=== PATIENT | female | born 1975 | race Caucasian/White ===

== ENCOUNTER 2021-06-29 19:09 | Inpatient (IN) | payer OTHER ==
[~2021-06-29] VITALS: Ht 162.6 cm; Wt 58.5 kg
--- NOTE | 2021-06-29 19:10 | NUR ---
PT BIB C/O RLQ PAIN AND VOMITING STARTED 12 NOON TODAY. PT IS AAOX4, NOT IN RESPIRATORY DISTRESS, HOOKED TO BRASS SORTER, KEPT RESTED AND COMFORTABLE. WILL CONTINUE TO MONITOR.
--- NOTE | 2021-06-29 19:26 | NUR ---
AT BEDSIDE FOR EVAL.
[2021-06-29] MEDS ORDERED: IV NS 0.9% 1,000 ML BAG IV ONE ×3 (19:30→22:00)
[2021-06-29] MEDS ORDERED: MORPHINE SULFATE INJ 2 MG/ML DISP.SYRIN IV ONE (19:30)
[2021-06-29] MEDS ORDERED: ONDANSETRON HCL/PF 4 MG/2 ML VIAL IVP ONE (19:30)
[2021-06-29] MEDS ORDERED: ONDANSETRON HCL/PF 4 MG/2 ML VIAL ONE (19:34)
[2021-06-29] MEDS ORDERED: MORPHINE SULFATE INJ 4 MG/ML DISP.SYRIN ONE (19:35)
--- NOTE | 2021-06-29 19:49 | NUR ---
URINE AND BLOOD SAMPLE SENT TO LAB. PT REFUSED MORPHINE AND ZOFRAN AT THIS TIME. WILL HOLD ON TO IT FOR NOW
[2021-06-29 20:06] LABS: BILIRUBIN,URINE NEGATIVE (NEGATIVE); COLOR,URINE YELLOW (YELLOW); LEUKOCYTE ESTERASE ,URINE NEGATIVE (NEGATIVE); NITRITE, URINE NEGATIVE (NEGATIVE); PROTEIN,URINE NEGATIVE (NEGATIVE); UGLUCOSE NEGATIVE (NEGATIVE); UROBILINOGEN,URINE 0.2 EU/dL (0.2)
[2021-06-29 20:16] LABS: CALCIUM, SERUM 9.1 mg/dL (8.5-10.1); CREATININE 0.9 mg/dL (0.6-1.3); POTASSIUM 3.8 mmol/L (3.5-5.1)
[2021-06-29 20:18] LABS: BASOPHILS % (AUTO) 0.1 % (0.0-2.0); HEMATOCRIT 38 % (33-45); HEMOGLOBIN 12.5 g/dL (11.5-14.8); LYMPHOCYTES # (AUTO) 0.6 K/uL (0.8-4.8); MEAN CORPUSCULAR HGB CONC 33 g/dl (31.0-36.0); MEAN CORPUSCULAR VOLUME 90 fL (82-100); MONOCYTES % (AUTO) 5.4 % (2.0-12.0); NEUTROPHILS # (AUTO) 17.5 K/uL (1.8-8.9); NEUTROPHILS % (AUTO) 91.5 % (43.0-81.0); PLATELET COUNT (AUTO) 216 K/uL (150-450); RED BLOOD CELL COUNT(AUTO) 4.25 MIL/uL (4.0-5.2); WHITE BLOOD COUNT (AUTO) 19.2 K/uL (4.3-11.0)
[2021-06-29 20:24] LABS: BILIRUBIN,DIRECT 0.2 mg/dL (0.0-0.2); BILIRUBIN,TOTAL 0.6 mg/dL (0.2-1.0); TOTAL PROTEIN, SERUM 8.5 g/dL (6.4-8.2)
[2021-06-29] MEDS ORDERED: LEVOFLOXACIN 750 MG /D5W 150ML 150 ML IV ONE ×2 (21:30→22:42)
[2021-06-29] MEDS ORDERED: METRONIDAZOLE 500MG/ NS 100ML 100 ML IV ONE ×2 (21:30→23:46)
--- NOTE | 2021-06-29 21:33 | NUR ---
DR MONDRAGON ON THE PHONE WITH DR KLINE, GEN SURGEON
[2021-06-29] MEDS ORDERED: IOHEXOL-300 100 ML VIAL IV ONE (21:40)
[2021-06-29] MEDS ORDERED: IV NS 0.9% 250 ML IV ONE (21:41)
[2021-06-29] MEDS ORDERED: diphenhydrAMINE HCL 50 MG/ML VIAL ONE (21:50)
--- NOTE | 2021-06-29 21:54 | NUR ---
CALLED [facility]OR[facility] FOR ADMISSION
[2021-06-29] MEDS ORDERED: diphenhydrAMINE HCL 50 MG/ML VIAL IV ONE (22:00)
--- NOTE | 2021-06-29 22:26 | NUR ---
PATIENT TAKEN TO CT
[2021-06-29] MEDS ORDERED: METRONIDAZOLE 500MG/ NS 100ML 0 ML IV ONE (22:42)
--- NOTE | 2021-06-29 23:24 | NUR ---
DR ROMAN ON THE PHONE W/ DR KLINE
--- NOTE | 2021-06-29 23:28 | NUR ---
CALLED [facility] FOR CT READ
--- NOTE | 2021-06-29 23:50 | NUR ---
ROOM 315-1
--- NOTE | 2021-06-30 00:35 | NUR ---
paged epic, report given to ARIANNE Colon
[2021-06-30] MEDS ORDERED: ACETAMINOPHEN 650 MG/SUPP.RECT RC PRN (01:00)
[2021-06-30] MEDS ORDERED: ONDANSETRON HCL/PF 4 MG/2 ML VIAL IVP PRN ×2 (01:00→16:30)
[2021-06-30] MEDS ORDERED: MORPHINE SULFATE INJ 2 MG/ML DISP.SYRIN IV PRN (01:00)
--- NOTE | 2021-06-30 01:08 | NUR ---
TRANSFERRED TO 3RD FLOOR IN STABLE CONDITION
--- NOTE | 2021-06-30 01:15 | NUR ---
FUN HOUSE OPERATOR NOTES PATIENT BROUGHT UP AT THIS TIME VIA STRETCHER. A/OX4, AMBULATORY WITH STEADY GAITS. SKIN IS INTACT. NO S/S OF APPARENT DISTRESS ON ROOM AIR. PAIN TOLERABLE PER PATIENT AND NOT NEEDING MEDICATION AT THE MOMENT. IV FLAGY STARTED IN THE ER STILL RUNNING AT THIS TIME. ID BAND REPLACED, BELONGINGS CHECKED. V/S FOLLOWS: BP-139/73, HR-102, RR-18, T-98.7, 99% SATURATION ON ROOM AIR. WT-129.2 LBS. WILL CONTINUE WITH THE ADMISSION PROCESS AND FOLLOW THROUGH DOCTOR'S ORDERS.
--- NOTE | 2021-06-30 01:20 | NUR ---
RN NOTE: PATIENT WISHES TO BE FULL CODE AT THIS TIME. UP TO DATE WITH FLU AND COVID VACCINE. DENIES SMOKING AND DRINKS WINE ONLY SOMETIMES. PATIENT REPORTS BEING CONSTIPATED. LAST MENSTRUAL CYCLE WAS JUST THIS JUNE. STARTED ON IV LR @150ML/HR. NEEDS ATTENDED AT THIS TIME. WILL CONTINUE TO MONITOR.
[2021-06-30 01:45] VITALS: BP 139/73
[2021-06-30] MEDS: IV LR 1000 ML 1,000 ML IV PRN ×2 (01:54→11:25)
[2021-06-30] MEDS ORDERED: METRONIDAZOLE 500MG/ NS 100ML 100 ML IV ONE (04:44)
[2021-06-30] MEDS: METRONIDAZOLE 500MG/ NS 100ML 500 MG in PREMIX 1 EA IV SCH ×3 (04:55→20:28)
--- NOTE | 2021-06-30 07:29 | NUR ---
REPORT GIVEN TO HARVINDER FOR CONTINUITY OF CARE.
--- NOTE | 2021-06-30 07:39 | NUR ---
RN OPENING NOTES Patient seen comfortably lying in bed, no apparent distress noted, respirations even and unlabored, no SOB, denies any pain or discomfort at this time, no grimacing. Call light left within reach, safety precautions in place, brakes locked, side rails up X 2, will monitor closely for any changes.
[2021-06-30] MEDS ORDERED: MAGN200T9 PO (08:13)
[2021-06-30] MEDS ORDERED: LEVO100T PO (08:13)
[2021-06-30] MEDS ORDERED: DIPH25CA51 PO (08:13)
[2021-06-30] MEDS ORDERED: LACT1CAP71 PO (08:13)
[2021-06-30] MEDS ORDERED: CHOL100062 PO (08:13)
[2021-06-30] MEDS ORDERED: GUAI120013 PO (08:13)
[2021-06-30] MEDS ORDERED: AVENOVA EACHEYE (08:13)
[2021-06-30 08:28] VITALS: BP 135/72
[2021-06-30 10:04] LABS: BASOPHILS % (AUTO) 0.1 % (0.0-2.0); EOSINOPHILS % (AUTO) 0.2 % (0.0-6.0); HEMATOCRIT 35 % (33-45); HEMOGLOBIN 11.4 g/dL (11.5-14.8); LYMPHOCYTES # (AUTO) 1.7 K/uL (0.8-4.8); LYMPHOCYTES % (AUTO) 13.9 % (20.0-44.0); MEAN CORPUSCULAR HGB CONC 33 g/dl (31.0-36.0); MEAN CORPUSCULAR VOLUME 90 fL (82-100); NEUTROPHILS # (AUTO) 9.2 K/uL (1.8-8.9); NEUTROPHILS % (AUTO) 77.8 % (43.0-81.0); PLATELET COUNT (AUTO) 206 K/uL (150-450); RED BLOOD CELL COUNT(AUTO) 3.89 MIL/uL (4.0-5.2); WHITE BLOOD COUNT (AUTO) 11.9 K/uL (4.3-11.0)
[2021-06-30 10:21] LABS: CALCIUM, SERUM 8.3 mg/dL (8.5-10.1); CREATININE 0.9 mg/dL (0.6-1.3); POTASSIUM 3.4 mmol/L (3.5-5.1)
--- NOTE | 2021-06-30 13:30 | NUR ---
Patient has an order for laparoscopic appendectomy possible exploratory laparotomy, consent for the procedure obtained from patient, verbalized understanding of the procedure, reminded patient that she needs to remain nothing by mouth diet, verbalized understanding and gratitude. Consents signed by patient and are filed in patients chart.
[2021-06-30] MEDS ORDERED: BUPIVACAINE MPF W/EPI 0.25% 30 ML VIAL ONE ×2 (13:35→13:44)
[2021-06-30] MEDS ORDERED: ANESTHESIA TRAY IN PYXIS 1 EA TRAY MC ONE (13:35)
[2021-06-30] MEDS ORDERED: BUPIVACAINE 0.25% 75 MG/30 ML VIAL ONE (13:36)
[2021-06-30] MEDS ORDERED: LIDOCAINE 1% INJ 50 ML MDV IJ ONE (13:44)
[2021-06-30] MEDS ORDERED: BACITRACIN ZINC OINT PACKET 1 EA PACKET TP ONE (13:44)
--- NOTE | 2021-06-30 13:50 | NUR ---
Patient left for surgery around 1350pm, remained NPO , denies any abdominal pain at this time, no apparent distress notes, no s/s of hypo/hyperglycemia, no change in level of consciousness, no tremors, denies any pain or discomfort, consents and checklist present in patients chart, [facility] PACU staff made aware.
[2021-06-30] MEDS ORDERED: HYDROMORPHONE INJ 2 MG/ML DISP.SYRIN ONE (14:00)
[2021-06-30] MEDS ORDERED: ROCURONIUM BROMIDE 50 MG/5 ML ONE (14:01)
[2021-06-30] MEDS ORDERED: MIDAZOLAM HCL 2 MG/2ML VIAL ONE (14:01)
[2021-06-30] MEDS ORDERED: CELLULOSE,OXIDIZED 1 PKT EACH MC ONE (15:00)
--- NOTE | 2021-06-30 16:08 | NUR ---
PATIENT CAME BACK FROM SURGERY AROUND 1608NN, STABLE CONDITION, NO APPARENT DISTRESS NOTED, DENIES ANY PAIN OR DISCOMFORT, NO SOB, AFEBRILE, NO RESPIRATORY DISTRESS. PATIENT CAME BACK WITH NEW ORDERS FROM DR. KLINE, PACU NURSE FAXED IT TO PHARMACY, ALSO PER MD, OKAY TO START PATIENT ON CLEAR LIQUIDS. Patient S/P appendectomy and right ovary cystectomy today, 3 laparoscopic sites seen, no dressings needed per MD, no swelling, no discoloration, no bleeding noted, no s/s of infection, no unusual drainage seen, patient remained afebrile, feels little abdominal soreness preferred not to take her as needed pain medications at this time, will monitor closely for any changes, call light left within reach.
[2021-06-30] MEDS ORDERED: IV LR 1000 ML 1,000 ML IV PRN (16:30)
[2021-06-30 16:41] VITALS: BP 117/62
[2021-06-30] MEDS: POTASSIUM CL. PREMIX PERIPHER. 50 ML IV SCH ×2 (16:53→19:06)
[2021-06-30] MEDS: GABAPENTIN 300 MG CAPSULE PO SCH (16:53)
--- NOTE | 2021-06-30 18:50 | NUR ---
RN CLOSING NOTES Patient lying in bed, no SOB, respirations even and unlabored, no apparent distress noted, all medications given per MD order, tolerating well. S/P appendectomy and right ovary cystectomy today, 3 laparoscopic sites seen, no bleeding noted, no s/s of infection, no swelling, no discoloration, no unusual drainage seen, patient remained afebrile, feels little abdominal soreness preferred not to take her as needed pain medications. Routine medications given per MD order, tolerating well. Anti emetic given as needed, noted with help. Kept clean and dry, all needs attended, aspiration precautions rendered, call light left within reach, safety precautions in place, brakes locked, side rails up X 2, will endorse to next shift for continuity of care.
[2021-06-30] MEDS ORDERED: ACETAMINOPHEN 325 MG TABLET PO SCH (19:00)
[2021-06-30] MEDS ORDERED: POTASSIUM CL. PREMIX PERIPHER. 50 ML ONE (19:04)
--- NOTE | 2021-06-30 19:30 | NUR ---
MS RN OPENING RECEIVED PATIENT IN BED. A/OX4, AT BEDSIDE AT THIS TIME. NO S/S OF APPARENT DISTRESS ON ROOM AIR. DENIES PAIN AT THIS TIME. IV LR RUNNING AT 150ML/HR THIS TIME. SAFETY IN PLACE. NEEDS ATTENDED AT THIS TIME. WILL CONTINUE WITH CARE PLAN.
[2021-06-30 20:00] VITALS: BP 109/58
[2021-07-01] MEDS ORDERED: LEVOFLOXACIN 750 MG /D5W 150ML 750 MG in PREMIX 1 EA IV SCH
[2021-07-01] MEDS: METRONIDAZOLE 500MG/ NS 100ML 500 MG in PREMIX 1 EA IV SCH ×2 (04:26→13:45)
--- NOTE | 2021-07-01 07:41 | NUR ---
RN OPENING NOTES Patient seen comfortably lying in bed, no SOB, no apparent distress noted, breathing even and unlabored, no grimacing. Call light left within reach, safety precautions in place, brakes locked, side rails up X 2, will monitor closely for any changes.
--- NOTE | 2021-07-01 07:41 | NUR ---
REPORT GIVEN TO KATY FOR CONTINUITY OF CARE.
[2021-07-01 07:48] LABS: BASOPHILS % (AUTO) 0.1 % (0.0-2.0); HEMATOCRIT 32 % (33-45); HEMOGLOBIN 10.6 g/dL (11.5-14.8); LYMPHOCYTES # (AUTO) 0.9 K/uL (0.8-4.8); LYMPHOCYTES % (AUTO) 11.4 % (20.0-44.0); MEAN CORPUSCULAR HGB CONC 34 g/dl (31.0-36.0); MEAN CORPUSCULAR VOLUME 90 fL (82-100); MONOCYTES # (AUTO) 0.8 K/uL (0.1-1.30); MONOCYTES % (AUTO) 10.6 % (2.0-12.0); NEUTROPHILS # (AUTO) 6.2 K/uL (1.8-8.9); NEUTROPHILS % (AUTO) 77.9 % (43.0-81.0); PLATELET COUNT (AUTO) 180 K/uL (150-450); RED BLOOD CELL COUNT(AUTO) 3.49 MIL/uL (4.0-5.2)
[2021-07-01 08:00] LABS: ALBUMIN 2.9 g/dL (3.4-5.0); BILIRUBIN,TOTAL 0.4 mg/dL (0.2-1.0); CALCIUM, SERUM 8.4 mg/dL (8.5-10.1); CREATININE 0.8 mg/dL (0.6-1.3); MAGNESIUM 1.7 mg/dL (1.8-2.4); PHOSPHORUS 2.8 mg/dL (2.5-4.9); POTASSIUM 3.7 mmol/L (3.5-5.1); TOTAL PROTEIN, SERUM 6.8 g/dL (6.4-8.2)
[2021-07-01 08:35] VITALS: BP 129/71
[2021-07-01] MEDS: GABAPENTIN 300 MG CAPSULE PO SCH ×2 (09:07→12:25)
[2021-07-01] MEDS: Magnesium 1GM/D5W 100ML PREMIX 100 ML IV SCH ×2 (12:25→13:45)
--- NOTE | 2021-07-01 15:25 | NUR ---
Patient to be discharged home today, no apparent distress noted, no shortness of breath, respirations even and unlabored, denies any pain or discomfort, abdominal bowel sounds present in all quadrants, able to tolerate soft diet during lunch, no nausea, no vomiting, no grimacing when abdomen palpated. Patient made aware of the situation, she signed all discharge paper works, all belongings taken, inventory list signed by patient. Health teaching provided, verbalized understanding and gratitude. Reminded resident to schedule a follow up with Dr. Riley (surgeon) in 1 week, office address and phone number handed to patient, verbalized understanding and gratitude. Skin assessment done prior to discharge, skin intact, warm to touch, no pallor or cyanosis noted. Patient has 3 closed surgical holes in her abdomen, preferred not to have photos taken, explained risks, benefits, and hospital protocol thrice, still refused, respected patient's wishes, site noted with no s/s of infection, no unusual drainage, no unusual odor, no bleeding at this time, reminded patient to avoid heavy lifting, observed for any s/s infection, verbalized understanding and gratitude. Peripheral IV line at right antecubital removed prior to discharge, complete and intact, no excessive bleeding noted, site covered with dry dressing. Name wristband removed prior to discharge, surgical mask provided for patient to use. RN assisted patient going to the hospital parking lot via wheelchair, left unit at 1525pm with stable condition, exit care documents handed to patient.
== END 2021-07-01 15:30 | disposition home or self-care (01) | DRG 341 ==
LOC: ER 19:11 → MED 06-30 00:13
PROC: 0UB04ZZ Excision of Right Ovary, Percutaneous Endoscopic Approach (ICD-10-PCS; principal; 2021-06-30)
PROC: 0DTJ4ZZ Resection of Appendix, Percutaneous Endoscopic Approach (ICD-10-PCS; 2021-06-30)
DX: K37 Unspecified appendicitis (principal); K66.1 Hemoperitoneum; N83.201 Unspecified ovarian cyst, right side; E87.6 Hypokalemia; D25.9 Leiomyoma of uterus, unspecified; K59.00 Constipation, unspecified; M41.85 Other forms of scoliosis, thoracolumbar region; Z20.822 Contact with and (suspected) exposure to COVID-19; D64.9 Anemia, unspecified; Z86.16 Personal history of COVID-19
CPT/HCPCS: 36415; 71045-TC; 76856-TC; 80048-TC; 80053-TC; 80076-TC; 83605-TC; 83690-TC; 83735-TC; 84100-TC; 84703-TC; 85025-TC; 87040-TC; 87081-TC; 88304-TC; 88305-TC; A4216; C9803; G0378; J1170; J1200; J1956; J2250; J2270; J2405; J3475; J3480; J3490; J7030; J7050; J7120; Q9967